=== PATIENT | female | born 1940 | race Hispanic/Latino ===

== ENCOUNTER 2025-11-07 13:26 | Inpatient (IN) | payer OTHER ==
[2025-11-07] MEDS ORDERED: Acetaminophen 500 MG TAB ONE (13:54)
[2025-11-07] MEDS ORDERED: cefTRIAXone (ROCEPHIN) 2 GM VIAL ONE (14:13)
[2025-11-07 14:23] LABS: #Basophils Less than 0.03 10x3/uL (0.0-0.2); #Eosinophils 0.04 10x3/uL (0.0-0.5); #Monocytes 0.69 10x3/uL (0.0-1.1); #Neutrophils 10.58 10x3/uL (1.5-8.4); %Basophils 0.2 % (0.0-2.0); %Eosinophils 0.3 % (0.0-6.0); %Lymphocytes 6.0 % (18.0-47.0); %Monocytes 5.7 % (0.0-10.0); %Neutrophils 87.4 % (40.0-75.0); Hematocrit 35.3 % (34.9-44.5); Hemoglobin 11.5 g/dL (12.0-15.5); Mean Corpuscular Hemoglobin 32.0 pg (27.0-33.0); Mean Corpuscular Volume 98.3 fL (81.6-98.3); Platelet Count 186 10x3/uL (150-450); Red Blood Cell (RBC) Count 3.59 10x6/uL (3.90-5.03); White Blood Cell (WBC) Count 12.10 10x3/uL (3.5-10.5)
[2025-11-07] MEDS ORDERED: Ondansetron PF 4 MG/2 ML Vial ONE (14:40)
[2025-11-07 14:43] LABS: ALT (SGPT) 12 U/L (Less than 34); AST (SGOT) 28 U/L (11-34); Albumin 3.5 g/dL (3.1-4.5); Alkaline Phosphatase 57 U/L (40-110); Anion Gap 15 mmol/L (10-20); BUN (Urea Nitrogen) 20 mg/dL (9.8-20.1); Bilirubin, Total 0.9 mg/dL (0.3-1.2); Calc. Creatinine Clearance 0 mL/min (70-130); Calcium 8.8 mg/dL (7.8-10.44); Carbon Dioxide 25 mmol/L (23-31); Chloride 99 mmol/L (98-107); Globulin 4.0 g/dL (2.4-3.5); Glucose 151 mg/dL (83-110); Potassium 3.9 mmol/L (3.5-5.1); Sodium 135 mmol/L (136-145)
[2025-11-07 16:02] LABS: Glucose, Urine (Dipstick) Normal (Negative); Leukocyte 500 (Negative); Protein, Urine (Dipstick) 100 mg/dl (Neg-Trace); Specific Gravity, Urine 1.020 (1.005-1.030)
[2025-11-07 16:10] LABS: Bacteria/HPF 2+ HPF (None Seen); CAUTI Indications for Culture Dysuria,urgency,freq; RBC/HPF 0-3 HPF (0-3); WBC/HPF Greater than 50 HPF (0-3)
[2025-11-07 16:11] LABS: Urine Culture Reflex Yes Yes
[2025-11-07] MEDS ORDERED: Ondansetron PF 4 MG/2 ML Vial IVP PRN (17:57)
[2025-11-07] MEDS ORDERED: Melatonin 3 MG TAB PO PRN (17:57)
[2025-11-07] MEDS ORDERED: Acetaminophen 325 MG TAB ONE (20:28)
[2025-11-07] MEDS ORDERED: Ketorolac Tromethamine 30 MG (1 mL) VIAL ONE (20:28)
[2025-11-07] MEDS: Acetaminophen 325 MG TAB PO PRN (20:41)
[2025-11-07] MEDS: Ketorolac Tromethamine 30 MG (1 mL) VIAL IVP PRN (20:44)
[2025-11-07] MEDS: Famotidine 20 MG TAB PO SCH (23:00)
[2025-11-07 23:12] VITALS: BMI 26.2
[2025-11-08 03:53] LABS: #Basophils 0.03 10x3/uL (0.0-0.2); #Eosinophils 0.08 10x3/uL (0.0-0.5); #Monocytes 0.69 10x3/uL (0.0-1.1); #Neutrophils 9.75 10x3/uL (1.5-8.4); %Basophils 0.3 % (0.0-2.0); %Eosinophils 0.7 % (0.0-6.0); %Lymphocytes 9.9 % (18.0-47.0); %Monocytes 5.9 % (0.0-10.0); %Neutrophils 82.8 % (40.0-75.0); Hematocrit 34.8 % (34.9-44.5); Hemoglobin 11.6 g/dL (12.0-15.5); Mean Corpuscular Hemoglobin 33.0 pg (27.0-33.0); Mean Corpuscular Volume 98.9 fL (81.6-98.3); Platelet Count 157 10x3/uL (150-450); Red Blood Cell (RBC) Count 3.52 10x6/uL (3.90-5.03); White Blood Cell (WBC) Count 11.77 10x3/uL (3.5-10.5)
[2025-11-08 04:06] LABS: Anion Gap 14 mmol/L (10-20); BUN (Urea Nitrogen) 17 mg/dL (9.8-20.1); Calc. Creatinine Clearance 58 mL/min (70-130); Calcium 8.1 mg/dL (7.8-10.44); Carbon Dioxide 21 mmol/L (23-31); Chloride 106 mmol/L (98-107); Glucose 100 mg/dL (83-110); Potassium 3.9 mmol/L (3.5-5.1); Sodium 137 mmol/L (136-145)
[2025-11-08] MEDS: Famotidine 20 MG TAB PO SCH (08:12)
[2025-11-08] MEDS: Enoxaparin 40 MG (0.4 mL) SYRINGE SC SCH (08:50)
[2025-11-08] MEDS ORDERED: Senokot S 8.6-50 MG TAB PO SCH (09:00)
[2025-11-08] MEDS: cefTRIAXone\\ROCEPHIN 2 GM in Sodium Chloride 0.9% 100 ML IVPB SCH (16:11)
[2025-11-08] MEDS: Multivit, Therapeutic 1 TAB PO SCH (20:33)
[2025-11-08] MEDS ORDERED: Bisacodyl 10 MG SUPP PR SCH (21:00)
[2025-11-08 22:32] LABS: Glucose, Urine (Dipstick) Normal (Negative); Leukocyte 100 (Negative); Protein, Urine (Dipstick) 100 mg/dl (Neg-Trace); Specific Gravity, Urine 1.015 (1.005-1.030)
[2025-11-08 22:45] LABS: RBC/HPF 0-3 HPF (0-3)
[2025-11-08 22:46] LABS: Bacteria/HPF None Seen HPF (None Seen); CAUTI Indications for Culture Fever or rigors
[2025-11-08 22:47] LABS: Urine Culture Reflex Yes Yes
[2025-11-09 03:44] LABS: #Basophils Less than 0.03 10x3/uL (0.0-0.2); #Eosinophils Less than 0.03 10x3/uL (0.0-0.5); #Monocytes 0.73 10x3/uL (0.0-1.1); #Neutrophils 8.14 10x3/uL (1.5-8.4); %Basophils 0.1 % (0.0-2.0); %Eosinophils 0.1 % (0.0-6.0); %Lymphocytes 7.7 % (18.0-47.0); %Monocytes 7.5 % (0.0-10.0); %Neutrophils 84.2 % (40.0-75.0); Hematocrit 29.2 % (34.9-44.5); Hemoglobin 9.5 g/dL (12.0-15.5); Mean Corpuscular Hemoglobin 31.7 pg (27.0-33.0); Mean Corpuscular Volume 97.3 fL (81.6-98.3); Platelet Count 151 10x3/uL (150-450); Red Blood Cell (RBC) Count 3.00 10x6/uL (3.90-5.03); White Blood Cell (WBC) Count 9.67 10x3/uL (3.5-10.5)
[2025-11-09 03:46] LABS: Anion Gap 10 mmol/L (10-20); BUN (Urea Nitrogen) 13 mg/dL (9.8-20.1); Calc. Creatinine Clearance 73 mL/min (70-130); Calcium 7.4 mg/dL (7.8-10.44); Carbon Dioxide 19 mmol/L (23-31); Chloride 109 mmol/L (98-107); Glucose 114 mg/dL (83-110); Potassium 3.4 mmol/L (3.5-5.1); Sodium 135 mmol/L (136-145)
[2025-11-09 04:26] LABS: Magnesium 1.5 mg/dL (1.6-2.6)
[2025-11-09] MEDS: Magnesium 2 GM/50 ML(in water) 2 GM in Premix 1 BAG IVPB SCH (04:47)
[2025-11-09] MEDS: Aspirin 81 mg Enteric Coated Tablet PO SCH (09:03)
[2025-11-09] MEDS: Famotidine 20 MG TAB PO SCH (09:04)
[2025-11-10 03:44] LABS: #Basophils 0.03 10x3/uL (0.0-0.2); #Eosinophils 0.06 10x3/uL (0.0-0.5); #Monocytes 0.59 10x3/uL (0.0-1.1); #Neutrophils 5.36 10x3/uL (1.5-8.4); %Basophils 0.4 % (0.0-2.0); %Eosinophils 0.8 % (0.0-6.0); %Lymphocytes 16.3 % (18.0-47.0); %Monocytes 8.1 % (0.0-10.0); %Neutrophils 74.0 % (40.0-75.0); Hematocrit 28.6 % (34.9-44.5); Hemoglobin 9.3 g/dL (12.0-15.5); Mean Corpuscular Hemoglobin 31.7 pg (27.0-33.0); Mean Corpuscular Volume 97.6 fL (81.6-98.3); Platelet Count 179 10x3/uL (150-450); Red Blood Cell (RBC) Count 2.93 10x6/uL (3.90-5.03); White Blood Cell (WBC) Count 7.25 10x3/uL (3.5-10.5)
[2025-11-10 04:02] LABS: Anion Gap 11 mmol/L (10-20); BUN (Urea Nitrogen) 8 mg/dL (9.8-20.1); Calc. Creatinine Clearance 78 mL/min (70-130); Calcium 7.9 mg/dL (7.8-10.44); Carbon Dioxide 22 mmol/L (23-31); Chloride 108 mmol/L (98-107); Glucose 106 mg/dL (83-110); Magnesium 2.0 mg/dL (1.6-2.6); Potassium 3.5 mmol/L (3.5-5.1); Sodium 137 mmol/L (136-145)
[2025-11-10] MEDS: Lisinopril 20 MG TAB PO SCH (08:11)
[2025-11-10 16:18] VITALS: BP 136/81; TEMP 98.3
== END 2025-11-10 17:00 | disposition home or self-care (01) | DRG 872 ==
LOC: CSHERS 13:26 → CSHERHOLD 18:05 → CSHICU 22:45
PROVIDERS: ADMIT Student in an Organized Health Care Education/Training Program; ATTEND Internal Medicine
PROC: 3E03329 Introduction of Other Anti-infective into Peripheral Vein, Percutaneous Approach (ICD-10-PCS; principal; 2025-11-07)
PROC: 05HY33Z Insertion of Infusion Device into Upper Vein, Percutaneous Approach (ICD-10-PCS; 2025-11-07)
DX: A41.59 Other Gram-negative sepsis (principal); N10 Acute pyelonephritis; E87.1 Hypo-osmolality and hyponatremia; I12.9 Hypertensive chronic kidney disease with stage 1 through stage 4 chronic kidney disease, or unspecified chronic kidney disease; N18.2 Chronic kidney disease, stage 2 (mild); D63.1 Anemia in chronic kidney disease; I44.0 Atrioventricular block, first degree; E78.5 Hyperlipidemia, unspecified; Z98.890 Other specified postprocedural states; Z90.710 Acquired absence of both cervix and uterus; Z87.440 Personal history of urinary (tract) infections; R65.20 Severe sepsis without septic shock; E86.0 Dehydration
CPT/HCPCS: 36415; 71045; 76770; 80048; 80053; 81001; 83605; 83735; 85025; 86140; 87040; 87077; 87086; 87186; 87428; 93005; 94640; J0696; J1650; J1885; J2405; J3475; J7030